=== PATIENT | male | born 1990 | race African-American/Black ===

== ENCOUNTER 2017-08-09 00:16 | Emergency (ER) | payer SELFPAY ==
[~2017-08-09] VITALS: Ht 188 cm; Wt 78.0 kg
[~2017-08-09 00:16] MED LIST: BACT800T5 PO; CEPH500C3 PO
[2017-08-09 00:17] VITALS: BP 140/86; PULSE 110; RESP 16; TEMP 99.1; O2SAT 94
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
[2017-08-09] MEDS ORDERED: IBUPROFEN 800 MG TAB PO ONE (01:45)
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
[2017-08-09] MEDS ORDERED: AUGM875T3 PO (03:30)
[2017-08-09] MEDS ORDERED: IBUP800T23 PO (03:30)
== END 2017-08-09 03:43 | disposition home or self-care (01) ==
LOC: NEPD 00:16
DX: S60.221A Contusion of right hand, initial encounter (principal); S61.451A Open bite of right hand, initial encounter; Y04.1XXA Assault by human bite, initial encounter
CPT/HCPCS: 73130; 99283

== ENCOUNTER 2018-07-05 21:22 | Inpatient (IN) ==
[2018-07-05] MEDS ORDERED: Naloxone Inj 0.4 MG/ML Vial IV.PUSH ONE (21:38)
[2018-07-05] MEDS ORDERED: Sod Chloride 0.9% Inj 1,000 ML IV.SIG ONE (21:38)
[2018-07-05] MEDS ORDERED: Naloxone Inj 0.4 MG/ML Vial ONE (21:40)
[2018-07-05 22:19] LABS: Baso # (Auto) 0.1 th/mm3 (0.0-0.2); Baso % (Auto) 0.7 % (0.0-2.0); Eos # (Auto) 0.2 th/mm3 (0.0-0.4); Eos % (Auto) 2.2 % (0.0-4.0); Hematocrit 40.2 % (39.0-51.0); Hemoglobin 13.5 gm/dL (13.0-17.0); Lymph # (Auto) 3.3 th/mm3 (1.0-4.8); Lymph % (Auto) 35.7 % (9.0-44.0); Mean Corpuscular HGB Conc 33.6 % (32.0-36.0); Mean Corpuscular Hemoglobin 28.5 pg (27.0-34.0); Mean Corpuscular Volume 84.7 fL (80.0-100.0); Mean Platelet Volume 7.6 fL (7.0-11.0); Mono # (Auto) 0.7 th/mm3 (0.0-0.9); Mono % (Auto) 7.2 % (0.0-8.0); Neut # (Auto) 4.9 th/mm3 (1.8-7.7); Neut % (Auto) 54.2 % (16.0-70.0); Platelet Count 280 th/mm3 (150-450); Red Blood Count 4.74 mil/mm3 (4.50-5.90); Red Cell Distribution Width 14.7 % (11.6-17.2); White Blood Count 9.1 th/mm3 (4.0-11.0)
--- NOTE | 2018-07-05 22:23 | XR ---
EXAM DATE: 07/05/2018 10:08 PM EDT AGE/SEX: 27 years / Male INDICATIONS: Shortness of breath. CLINICAL DATA: This is the patient's initial encounter. Patient reports that signs and symptoms have been present for 1 day and indicates a pain score of 0/10. MEDICAL/SURGICAL HISTORY: None. None. COMPARISON: No prior exams available for comparison. FINDINGS: A single AP view of the chest demonstrates the lungs to be symmetrically aerated without evidence of mass, infiltrate or effusion. The cardiomediastinal contours are unremarkable. Osseous structures a re intact. CONCLUSION: The lungs are clear. Electronically signed by: Nathaniel Fermin MD 07/05/2018 10:21 PM EDT
--- NOTE | 2018-07-05 22:24 | CT ---
EXAM DATE: 07/05/2018 10:08 PM EDT AGE/SEX: 27 years / Male INDICATIONS: Altered mental status, possible overdose CLINICAL DATA: This is the patient's initial encounter. Patient reports that signs and symptoms have been present for 1 day and indicates a pain score of 0/10. MEDICAL/SURGICAL HISTORY: Renal calculi. None. RADIATION DOSE: 56.35 CTDI (mGy) COMPARISON: [facility] [place], CT BRAIN W/O CONTRAST, 09/14/2012. . TECHNIQUE: CT of the head without contrast. Using automated exposure control and adjustment of the mA and/or kV according to patient size, radiation dose was kept as low as reasonably achievable to ob tain optimal diagnostic quality images. DICOM format image data is available electronically for revi ew and comparison. FINDINGS: Cerebrum: The ventricles are normal for age. No evidence of midline shift, mass lesion, hemorrhage or acute infarction. No extraaxial fluid collections are seen. Posterior Fossa: The cerebellum and brainstem are intact. The 4th ventricle is midline. The cerebe llopontine angle is unremarkable. Extracranial: The visualized portion of the orbits is intact. Skull: The calvaria is intact. No evidence of skull fracture. CONCLUSION: 1. Negative noncontrast CT brain. . Electronically signed by: Nathaniel Fermin MD 07/05/2018 10:22 PM EDT
[2018-07-05 22:45] LABS: Alanine Aminotransferase 76 U/L (12-78); Albumin 4.1 g/dL (3.4-5.0); Alkaline Phosphatase 84 U/L (45-117); Anion Gap 6 meq/L (5-15); Aspartate Aminotransferase 47 U/L (15-37); Blood Urea Nitrogen 17 mg/dL (7-18); Calcium 8.3 mg/dL (8.5-10.1); Carbon Dioxide 30.1 meq/L (21.0-32.0); Chloride 107 meq/L (98-107); Glomerular Filtration Rate 78 mL/min (>89); Glucose,Random 102 mg/dL (74-106); Sodium 143 meq/L (136-145); Total Protein 7.8 g/dL (6.4-8.2)
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
--- NOTE | 2018-07-06 00:12 | CT ---
EXAM DATE: 07/05/2018 11:59 PM EDT AGE/SEX: 27 years / Male INDICATIONS: Patient found unresponsive. CLINICAL DATA: This is the patient's initial encounter. Patient reports that signs and symptoms have been present for 1 day and indicates a pain score of 2/10. MEDICAL/SURGICAL HISTORY: Renal calculi. None. RADIATION DOSE: 18.73 CTDI (mGy) COMPARISON: No prior exams available for comparison. TECHNIQUE: Contiguous axial images were obtained using helical multirow detector technique. The vol umetric data was post-processed with multiplanar reconstruction in oblique axial, sagittal, and coron al planes. Using automated exposure control and adjustment of the mA and/or kV according to patient s ize, radiation dose was kept as low as reasonably achievable to obtain optimal diagnostic quality torri ges. DICOM format image data is available electronically for review and comparison. FINDINGS: Sagittal and coronal reconstruction show reversal of the normal lordotic curvature which may be posit ional. There is some early degenerative disc disease with small uncovertebral ridging is identified a t C4-5 and C5-6. C2-3: The bony spinal canal is normal in size. No evidence of disc bulge or herniation. The neural foramina are bilaterally patent. C3-4: The bony spinal canal is normal in size. No evidence of disc bulge or herniation. The neural foramina are bilaterally patent. C4-5: Minimal uncovertebral ridging predominantly directed anteriorly. Spinal canal and neural heena merlny are patent C5-6: Minimal uncovertebral ridging anteriorly and posteriorly. Spinal canal and neural foramina are patent C6-7: The bony spinal canal is normal in size. No evidence of disc bulge or herniation. The neural foramina are bilaterally patent. C7-T1: The bony spinal canal is normal in size. No evidence of disc bulge or herniation. The neura l foramina are bilaterally patent. CONCLUSION: 1. Reversal of the normal lordotic curvature which may be positional. Mild degenerative disc disease at C4-5 and C5-6 with small uncovertebral spurs. 2. However, spinal canal and neural foramina are patent throughout without cord or nerve root compro mise. No fracture or listhesis. Electronically signed by: Dany Mccoy MD 07/06/2018 12:11 AM EDT
[2018-07-06 02:08] LABS: Amphetamine Screen,Urine Neg (Neg); Barbiturate Screen,Urine Neg (Neg); Cannabinoid Screen,Urine Pos (Neg); Cocaine Screen,Urine Pos (Neg)
[2018-07-06 02:10] LABS: Bilirubin,Urine Negative (Negative); Calcium Oxalate Crystals,Urine Rare /hpf; Clarity,Urine Hazy (Clear); Color,Urine Amber (Yellw/Straw); Glucose,Urine (UA) Negative (Negative); Hyaline Casts,Urine 5 /lpf (0-3); Leukocyte Esterase,Urine Negative (Negative); Mucus,Urine Many /lpf (Occasional); Nitrite,Urine Negative (Negative); Specific Gravity,Urine 1.032 (1.002-1.035); Squamous Epithelial Cell,Urine <1 /hpf (0-5)
[2018-07-06 02:12] LABS: Opiate Screen,Urine Neg (Neg)
[2018-07-06] MEDS ORDERED: Bisacodyl 10 MG Supp RECTAL PRN (03:12)
[2018-07-06] MEDS ORDERED: Acetaminophen 325 MG Tablet PO PRN (03:12)
--- NOTE | 2018-07-06 04:17 | P.HP ---
History of Present Illness Service: [facility] Primary Care Physician: No Primary Care Physician History of Present Illness: 27-year-old male with past medical history significant for IV drug abuse presents to the emergency department altered and with concern for substance overdose. The patient was given in the emergency department with significant improvement in his mental status. He reports remembering department department with EMS was called. He admits doing IV cocaine/heroine approximately 30-40 minutes prior to the incident. Patient denies any chest pain or shortness of breath. No abdominal pain. No nausea/vomiting/diarrhea. No fever/chills. Reports he has been trying to get a bed at [facility] so that he can go into detox. Inpatient Certification: I certify that the inpatient services were ordered in accordance with Medicare regulations governing the order. This includes certification that hospital inpatient services are reasonable and necessary and in the case of services not specified as inpatient-only under 42 CFR 419.22(n), that they are appropriately provided as inpatient services in accordance to with the 2-midnight benchmark under 43 CFR 412.3(e) Estimated Total Length of Stay (Days): 2 Plans for Post Hospital Care: Not yet determined Review of Systems All other systems reviewed negative except as stated in HPI PMFSH - History History Provided By: Insurance Agents Supervisor / EMT - Medical / Surgical Hx Neg / Unobtainable Surgical History: No Previous Surgery - Medical History Medical History: Medical History (Last Reviewed 07/03/18 @ 01:32 by THANH Schaefer) Polysubstance abuse (Acute) Kidney stones (Acute) PTSD (post-traumatic stress disorder) (Acute) - Family History Family History: Family History (Last Updated 07/06/18 @ 04:10 by Karley Sales MD) Other Family history normal - Tobacco History Second Hand Smoke Exposure: No Tobacco Use In Past 30 Days: Yes Smoking Status: Current every day smoker Tobacco Type: Cigarettes - Alcohol History How Often Do You Have a Drink Containing Alcohol: Unable to Obtain - Substance Use History Substance History: Active Abuse - Substance Use Type Heroin Status: Active Route Used: Intravenously Reason for Use: Feels Good - Travel History Recent Travel in the [place] Within the Last 8 Weeks: No Recent Travel Out of the Country Within the Last 8 Weeks: No - Immunization History Tetanus Immunization: <5 Years Hx Influenza Vaccine This Season: No Medications and Allergies Active Medications: Active Medications Al Hydroxide/Mg Hydroxide (Milk Of Arvirago Liq) 30 ml PO Q12H PRN PRN Reason: Mild Constipation Bisacodyl (Dulcolax Supp) 10 mg RECTAL DAILY PRN PRN Reason: SEVERE CONSITIPATION Sodium Chloride (Ns Inj) 1,000 mls @ 100 mls/hr IV.CONT .Q10H JESSICA Lactulose (Lactulose Liq) 30 ml PO DAILY PRN PRN Reason: SEVERE CONSITIPATION Ondansetron HCl (Zofran Inj) 4 mg IV.PUSH Q6H PRN PRN Reason: NAUSEA OR VOMITING Senna/Docusate Sodium (Sara-Colace) 1 tab PO BID JESSICA Sennosides (Senokot) 17.2 mg PO Q12H PRN PRN Reason: Moderate Constipation Allergies Allergy/AdvReac Type Severity Reaction Status Date / Time acetaminophen Allergy Severe FACE SWELLS Verified 07/05/18 21:31 banana Allergy Nausea Verified 07/05/18 21:31 nut - unspecified Allergy Itching, Verified 07/05/18 21:31 Generalized shellfish derived Allergy Rash Verified 07/05/18 21:31 Home Medications Medication Instructions Recorded Confirmed Type clonidine HCl 0.1 mg PO DAILY 07/03/18 07/03/18 History hydroxyzine pamoate [Vistaril] 50 mg PO PRN PRN 07/03/18 07/03/18 History mirtazapine [Remeron] 15 mg PO HS 07/03/18 07/03/18 History Exam Vital signs: Vital Signs 07/05/18 21:31 07/05/18 22:11 07/06/18 01:29 Temperature 98.2 F Pulse Rate 115 H 62 Respiratory Rate 19 16 Blood Pressure 168/79 H 116/78 Pulse Oximetry 95 96 99 Intake & Output 07/05/18 07/05/18 07/06/18 06:59 18:59 06:59 Intake Total 1000 / 1000 Balance 1000 / 1000 Weight 72.575 kg Intake: IV 1000 / 1000 NS Inj 1,000 ML @ Wide Open IV. 1000 / 1000 SIG BOLUS ONE Rx#:[id number] Narrative: Gen.: No acute distress Head: Normocephalic. Atraumatic. EENT: Pupils equal round and reactive to light. Nose without drainage. Airway intact. Throat without injection. Cardiovascular: Regular rate and rhythm. No murmurs, rubs or gallops. Respiratory: Lungs clear to auscultation bilaterally. No wheezes or rhonchi. Abdomen: Soft, nontender, nondistended. No peritoneal signs. Musculoskeletal: No gross deformities. No edema. Skin: No obvious rashes or erythema. Neuro: Sensory and motor grossly intact. Cranial nerves II through XII grossly intact. Results - Labs CBC & Chem 7: 07/05/18 21:45 07/05/18 21:45 Labs: Laboratory Results - last 24 hr 07/05/18 07/05/18 07/05/18 21:45 21:45 21:45 WBC 9.1 RBC 4.74 Hgb 13.5 Hct 40.2 MCV 84.7 MCH 28.5 MCHC 33.6 RDW 14.7 Plt Count 280 MPV 7.6 Neut % (Auto) 54.2 Lymph % (Auto) 35.7 [place] % (Auto) 7.2 Eos % (Auto) 2.2 Baso % (Auto) 0.7 Neut # (Auto) 4.9 Lymph # (Auto) 3.3 [place] # (Auto) 0.7 Eos # (Auto) 0.2 Baso # (Auto) 0.1 WBC Differential . Differential Comment Auto diff final Sodium 143 Potassium 4.0 Chloride 107 Carbon Dioxide 30.1 Anion Gap 6 BUN 17 Creatinine 1.32 H Estimated GFR 78 L Random Glucose 102 Lactic Acid 0.9 Calcium 8.3 L Total Bilirubin 0.2 AST 47 H ALT 76 Alkaline Phosphatase 84 Troponin I 0.10 H Total Protein 7.8 Albumin 4.1 Urine Color Urine Clarity Urine pH Ur Specific [place] Urine Protein Urine Glucose (UA) Urine Ketones Urine Occult Blood Urine Nitrate Urine Bilirubin Urine Urobilinogen Ur Leukocyte Esterase Urine RBC Urine WBC Ur Squamous Epith Cells Calcium Oxalate Crystal Hyaline Casts Urine Mucus Ur Microscopic Review Salicylates Urine Opiates Screen Acetaminophen Less than 2.0 L Ur Barbiturates Screen Ur Amphetamines Screen U Benzodiazepines Scrn Urine Cocaine Screen U Cannabinoids Screen Serum Alcohol Less than 3 07/05/18 07/06/18 07/06/18 21:45 01:45 01:45 WBC RBC Hgb Hct MCV MCH MCHC RDW Plt Count MPV Neut % (Auto) Lymph % (Auto) [place] % (Auto) Eos % (Auto) Baso % (Auto) Neut # (Auto) Lymph # (Auto) [place] # (Auto) Eos # (Auto) Baso # (Auto) WBC Differential Differential Comment Sodium Potassium Chloride Carbon Dioxide Anion Gap BUN Creatinine Estimated GFR Random Glucose Lactic Acid Calcium Total Bilirubin AST ALT Alkaline Phosphatase Troponin I Total Protein Albumin Urine Color [place] Urine Clarity Hazy H Urine pH 5.0 Ur Specific [place] 1.032 Urine Protein 30 H Urine Glucose (UA) Negative Urine Ketones Trace Urine Occult Blood Negative Urine Nitrate Negative Urine Bilirubin Negative Urine Urobilinogen 2.0 H Ur Leukocyte Esterase Negative Urine RBC 8 H Urine WBC 2 Ur Squamous Epith Cells <1 Calcium Oxalate Crystal Rare H Hyaline Casts 5 Urine Mucus Many H Ur Microscopic Review Not Reportable Salicylates Less than 1.7 L Urine Opiates Screen Neg Acetaminophen Ur Barbiturates Screen Neg Ur Amphetamines Screen Neg U Benzodiazepines Scrn Neg Urine Cocaine Screen Pos H U Cannabinoids Screen Pos H Serum Alcohol - Imaging Impressions Chest X-Ray 07/05/18 21:38 CONCLUSION: The lungs are clear. Head CT 07/05/18 21:38 CONCLUSION: 1. Negative noncontrast CT brain. . Cervical Spine CT 07/05/18 23:31 CONCLUSION: 1. Reversal of the normal lordotic curvature which may be positional. Mild degenerative disc disease at C4-5 and C5-6 with small uncovertebral spurs. 2. However, spinal canal and neural foramina are patent throughout without cord or nerve root compromise. No fracture or listhesis. Caprini VTE Risk Assessment Caprini VTE Risk Assessment: No/Low Risk (score <= 1) Caprini Risk Assessment Model: Point Value = 1 Point Value = 2 Point Value = 3 Point Value = 5 Age 41-60 Minor surgery BMI > 25 kg/m2 Swollen legs Varicose veins or History of unexplained or recurrent spontaneous Oral contraceptives or hormone replacement Sepsis (< 1 month) Serious lung disease, including pneumonia (< 1 month) Abnormal pulmonary function Acute myocardial infarction Congestive heart failure (< 1 month) History of inflammatory bowel disease Medical patient at bed rest Age 61-74 Arthroscopic surgery Major open surgery (> 45 min) Laparoscopic surgery (> 45 min) Malignancy Confined to bed (> 72 hours) Immobilizing plaster cast Central venous access Age >= 75 History of VTE Family history of VTE Factor V Leiden Prothrombin [id number] Lupus anticoagulant Anticardiolipin antibodies Elevated serum homocysteine Heparin-induced thrombocytopenia Other congenital or acquired thrombophilia Stroke (< 1 month) Elective arthroplasty Hip, pelvis, or leg fracture Acute spinal cord injury (< 1 month) Prophylaxis Regimen: Total Risk Factor Score Risk Level Prophylaxis Regimen 0-1 Low Early ambulation 2 Moderate Order ONE of the following: *Sequential Compression Device (SCD) *Heparin 5000 units SQ BID 3-4 Higher Order ONE of the following medications: *Heparin 5000 units SQ TID *Enoxaparin/Lovenox 40 mg SQ daily (WT < 150 kg, CrCl > 30 mL/min) *Enoxaparin/Lovenox 30 mg SQ daily (WT < 150 kg, CrCl > 10-29 mL/min) *Enoxaparin/Lovenox 30 mg SQ BID (WT < 150 kg, CrCl > 30 mL/min) AND/OR *Sequential Compression Device (SCD) 5 or more Highest Order ONE of the following medications: *Heparin 5000 units SQ TID (Preferred with Epidurals) *Enoxaparin/Lovenox 40 mg SQ daily (WT < 150 kg, CrCl > 30 mL/min) *Enoxaparin/Lovenox 30 mg SQ daily (WT < 150 kg, CrCl > 10-29 mL/min) *Enoxaparin/Lovenox 30 mg SQ BID (WT < 150 kg, CrCl > 30 mL/min) AND *Sequential Compression Device (SCD) Assessment and Plan - Plan Assessment/plan: 1. Drug overdose Patient admits to doing IV cocaine and heroin Status post Narcan Monitor Repeat Narcan if needed 2. Elevated troponin Initial troponin 0.10 EKG significant for sinus bradycardia without ST segment elevation or depression , personally reviewed ACS rule out pending; serial troponins/EKGs 3. DAREN Cr 1.32 IVF hydration Monitor renal function 4. Polysubstance abuse Patient reports he attempted to get a bed at [facility] yesterday and they are holding one for him today Case management consulted to assist FEN Regular diet Electrolytes: Monitor and replete as needed NS at 100 cc/hour
[2018-07-06] MEDS: Sod Chloride 0.9% Inj 1,000 ML IV.CONT SCH ×3 (04:22→23:38)
[2018-07-06 04:27] LABS: Troponin I 0.38 ng/mL (0.02-0.05)
[2018-07-06] MEDS ORDERED: Sod Chloride 0.9% Inj 1,000 ML IV.SIG SCH (04:30)
[2018-07-06] MEDS: Senna/Docusate Sodium 8.6/50 MG Tablet PO SCH ×2 (09:08→21:05)
[2018-07-06] MEDS: Ibuprofen 400 MG Tablet PO PRN (10:20)
--- NOTE | 2018-07-06 12:45 | ECG ---
Date Performed: 07/05/2018 Time Performed: 22:40:50 PTAGE: 27 years EKG: SINUS BRADYCARDIA MARKED LEFT AXIS DEVIATION POSSIBLE RIGHT VENTRICULAR CONDUCTION DELAY NO NSPECIFIC T-WAVE ABNORMALITY ABNORMAL ECG PREVIOUS TRACING : 12/19/2014 19.28 Since the previous tracing, no significant change noted DOCTOR: Jorge Yuen Interpretating Date/Time 07/06/2018 12:44:07
--- NOTE | 2018-07-06 12:46 | ECG ---
Date Performed: 07/06/2018 Time Performed: 04:07:28 PTAGE: 27 years EKG: SINUS BRADYCARDIA WITH FIRST DEGREE AV BLOCK BORDERLINE LEFT AXIS DEVIATION POSSIBLE RIGHT VENTRICULAR CONDUCTION DELAY ABNORMAL ECG NO PREVIOUS TRACING Since the previous tracing, no significant change noted DOCTOR: Jorge Yuen Interpretating Date/Time 07/06/2018 12:44:22
--- NOTE | 2018-07-06 12:49 | MB ---
cc: Jorge Yuen MD DATE: 07/06/2018 REASON FOR CONSULTATION: Elevated troponin. HISTORY OF PRESENT ILLNESS: The patient is a 27-year-old gentleman who was recently in rehab for drug use and had been clean for a brief period of time, but relapsed fairly quickly afterwards including both cocaine and heroin. He was brought to the hospital for concern of drug overdose and part of his workup showed an elevated troponin. He did receive Narcan. Currently, the patient denies any current or recent chest pain, shortness of breath, lightheadedness, or dizziness. He just notes nausea and vomiting that he attributes to heroin withdrawal. PAST MEDICAL HISTORY: IV drug abuse. CURRENT MEDICATIONS: Lactulose p.r.n. ALLERGIES: ACETAMINOPHEN, BANANA. PHYSICAL EXAMINATION: VITAL SIGNS: Afebrile, pulse 51, respiratory rate 16, BP 116/67, saturating 93 on room air. GENERAL: Pleasant, though somnolent gentleman in no distress. NECK: No JVD. LUNGS: Clear to auscultation bilaterally. CARDIOVASCULAR: Regular rate and rhythm. No murmurs appreciated. ABDOMEN: Benign. EXTREMITIES: No edema. LABORATORY DATA: Troponin 0.38. Sodium 143, potassium 4.0, chloride 107, bicarbonate 30.1, BUN 17, creatinine 1.32, glucose 102. Troponin 0.38. EKG shows sinus rhythm with no acute ST or T-wave changes. Chest x-ray is normal. IMPRESSION: Elevated troponin. The patient's elevated troponins are unlikely to be acute coronary syndrome given no chest pain and normal EKG and a relatively young age. Given his SHELLFISH ALLERGY, I will start with a nuclear stress test. Hopefully it will be normal. If positive, I will likely have him undergo a CTA before cardiac catheterization given the low likelihood for coronary artery disease. I would ask that these tests be done tomorrow given he is pretty uncomfortable from his heroin withdrawal currently. I will monitor the results of these tests, but likely will not follow the patient on a daily basis. Thank you again for the opportunity to participate in this patient's care. MD STANISLAV Larson/billie , 11:25 AM , 11:30 AM
--- NOTE | 2018-07-06 14:49 | P.PN ---
Subjective Interval history: Follow-up for overdose and elevated troponin; patient awakes to voice, somewhat anxious. Denies any chest pain, no shortness of breath, complain of nausea vomiting. No abdominal pain. Indicates that he had not had any drugs for about a month until yesterday when he relapsed. Patient has been dropping heart rate down to 30s, has been noted with pulses from 2.2-2.6 seconds. Patient asymptomatic, no dizziness. Has been evaluated by cardiology, stress test recommended possibly Sunday. Physical Exam Vital signs: Vital Signs 07/05/18 21:31 07/05/18 22:11 07/06/18 01:29 Temperature 98.2 F Pulse Rate 115 H 62 Respiratory Rate 19 16 Blood Pressure 168/79 H 116/78 Pulse Oximetry 95 96 99 07/06/18 04:00 07/06/18 04:22 07/06/18 06:00 Temperature 97.6 F Pulse Rate 57 L 52 L 51 L Respiratory Rate 19 16 Blood Pressure 121/80 116/67 Pulse Oximetry 100 07/06/18 08:00 07/06/18 12:00 Temperature 98 F 97.8 F Pulse Rate 49 L 60 Respiratory Rate 20 20 Blood Pressure 111/62 118/81 Pulse Oximetry 99 98 Intake & Output 07/05/18 07/06/18 07/06/18 18:59 06:59 18:59 Intake Total 1999 1000 / 1000 Balance 1999 1000 / 1000 Weight 73.482 kg Intake: IV 1999 / 1000 NS Inj 1,000 ML @ 125 mls/hr IV 1000 / 1000 .CONT .Q8H JESSICA Rx#:[id number] NS Inj 1,000 ML @ Wide Open IV. 1999 SIG BOLUS JESSICA Rx#:[id number] Other: Weight On Admission 73.482 kg Narrative: GENERAL: Well-nourished, well-developed patient in no apparent distress. SKIN: Warm and dry. HEAD: Atraumatic. Normocephalic. EYES: Pupils equal and round. No scleral icterus. No injection or drainage. ENT: No nasal bleeding or discharge. Mucous membranes pink and moist. NECK: Trachea midline. No JVD. CARDIOVASCULAR: S1-S2, bradycardia. Unable to detect any murmurs rubs or gallops. RESPIRATORY: No accessory muscle use. Clear to auscultation. Breath sounds equal bilaterally. GASTROINTESTINAL: Abdomen soft, non-tender, nondistended. Hepatic and splenic margins not palpable. MUSCULOSKELETAL: Extremities without clubbing, cyanosis, or edema. No obvious deformities. NEUROLOGICAL: Awake, alert oriented 3. No focal deficits. PSYCHIATRIC: Anxious. Results - Labs CBC & Chem 7: 07/05/18 21:45 07/05/18 21:45 Laboratory Results - last 24 hr 07/05/18 07/05/18 07/05/18 21:45 21:45 21:45 WBC 9.1 RBC 4.74 Hgb 13.5 Hct 40.2 MCV 84.7 MCH 28.5 MCHC 33.6 RDW 14.7 Plt Count 280 MPV 7.6 Neut % (Auto) 54.2 Lymph % (Auto) 35.7 [place] % (Auto) 7.2 Eos % (Auto) 2.2 Baso % (Auto) 0.7 Neut # (Auto) 4.9 Lymph # (Auto) 3.3 [place] # (Auto) 0.7 Eos # (Auto) 0.2 Baso # (Auto) 0.1 WBC Differential . Differential Comment Auto diff final Sodium 143 Potassium 4.0 Chloride 107 Carbon Dioxide 30.1 Anion Gap 6 BUN 17 Creatinine 1.32 H Estimated GFR 78 L Random Glucose 102 Lactic Acid 0.9 Calcium 8.3 L Total Bilirubin 0.2 AST 47 H ALT 76 Alkaline Phosphatase 84 Total Creatine Kinase Troponin I 0.10 H Total Protein 7.8 Albumin 4.1 Urine Color Urine Clarity Urine pH Ur Specific [place] Urine Protein Urine Glucose (UA) Urine Ketones Urine Occult Blood Urine Nitrate Urine Bilirubin Urine Urobilinogen Ur Leukocyte Esterase Urine RBC Urine WBC Ur Squamous Epith Cells Calcium Oxalate Crystal Hyaline Casts Urine Mucus Ur Microscopic Review Salicylates Urine Opiates Screen Acetaminophen Less than 2.0 L Ur Barbiturates Screen Ur Amphetamines Screen U Benzodiazepines Scrn Urine Cocaine Screen U Cannabinoids Screen Serum Alcohol Less than 3 07/05/18 07/06/18 07/06/18 21:45 01:45 01:45 WBC RBC Hgb Hct MCV MCH MCHC RDW Plt Count MPV Neut % (Auto) Lymph % (Auto) [place] % (Auto) Eos % (Auto) Baso % (Auto) Neut # (Auto) Lymph # (Auto) [place] # (Auto) Eos # (Auto) Baso # (Auto) WBC Differential Differential Comment Sodium Potassium Chloride Carbon Dioxide Anion Gap BUN Creatinine Estimated GFR Random Glucose Lactic Acid Calcium Total Bilirubin AST ALT Alkaline Phosphatase Total Creatine Kinase Troponin I Total Protein Albumin Urine Color Maribel Urine Clarity Hazy H Urine pH 5.0 Ur Specific [place] 1.032 Urine Protein 30 H Urine Glucose (UA) Negative Urine Ketones Trace Urine Occult Blood Negative Urine Nitrate Negative Urine Bilirubin Negative Urine Urobilinogen 2.0 H Ur Leukocyte Esterase Negative Urine RBC 8 H Urine WBC 2 Ur Squamous Epith Cells <1 Calcium Oxalate Crystal Rare H Hyaline Casts 5 Urine Mucus Many H Ur Microscopic Review Not Reportable Salicylates Less than 1.7 L Urine Opiates Screen Neg Acetaminophen Ur Barbiturates Screen Neg Ur Amphetamines Screen Neg U Benzodiazepines Scrn Neg Urine Cocaine Screen Pos H U Cannabinoids Screen Pos H Serum Alcohol 07/06/18 04:00 WBC RBC Hgb Hct MCV MCH MCHC RDW Plt Count MPV Neut % (Auto) Lymph % (Auto) [place] % (Auto) Eos % (Auto) Baso % (Auto) Neut # (Auto) Lymph # (Auto) [place] # (Auto) Eos # (Auto) Baso # (Auto) WBC Differential Differential Comment Sodium Potassium Chloride Carbon Dioxide Anion Gap BUN Creatinine Estimated GFR Random Glucose Lactic Acid Calcium Total Bilirubin AST ALT Alkaline Phosphatase Total Creatine Kinase 176 Troponin I 0.38 H Total Protein Albumin Urine Color Urine Clarity Urine pH Ur Specific [place] Urine Protein Urine Glucose (UA) Urine Ketones Urine Occult Blood Urine Nitrate Urine Bilirubin Urine Urobilinogen Ur Leukocyte Esterase Urine RBC Urine WBC Ur Squamous Epith Cells Calcium Oxalate Crystal Hyaline Casts Urine Mucus Ur Microscopic Review Salicylates Urine Opiates Screen Acetaminophen Ur Barbiturates Screen Ur Amphetamines Screen U Benzodiazepines Scrn Urine Cocaine Screen U Cannabinoids Screen Serum Alcohol - Imaging Impressions Chest X-Ray 07/05/18 21:38 CONCLUSION: The lungs are clear. Head CT 07/05/18 21:38 CONCLUSION: 1. Negative noncontrast CT brain. . Cervical Spine CT 07/05/18 23:31 CONCLUSION: 1. Reversal of the normal lordotic curvature which may be positional. Mild degenerative disc disease at C4-5 and C5-6 with small uncovertebral spurs. 2. However, spinal canal and neural foramina are patent throughout without cord or nerve root compromise. No fracture or listhesis. Assessment and Plan - Assessment (1) Elevated troponin Code(s): R74.8 - Abnormal levels of other serum enzymes Status: Acute (2) Bradycardia Code(s): R00.1 - Bradycardia, unspecified Status: Acute (3) DAREN (acute kidney injury) Code(s): N17.9 - Acute kidney failure, unspecified Status: Acute (4) Polysubstance abuse Code(s): F19.10 - Other psychoactive substance abuse, uncomplicated Status: Acute - Plan Assessment/plan: 27-year-old male with past medical history significant for IV drug abuse presents to the emergency department altered and with concern for substance overdose. Admits to taking IV cocaine/heroine approximately 30-40 minutes prior to the incident. Patient denies any chest pain or shortness of breath. No abdominal pain. No nausea/vomiting/diarrhea. No fever/chills. Reports he has been trying to get a bed at [facility] so that he can go into detox. Drug overdose Patient admits to doing IV cocaine and heroin Status post Narcan -Monitor for withdrawals Monitor vital signs closely Narcan as needed Continue with IV fluids Elevated troponin, doubtful that this is due to the acute coronary syndrome, patient with recent IV cocaine and heroin. Patient also noted with acute kidney injury. EKG negative, no ST segment elevation, no depression. Bradycardia, noted with pauses 2.2 to 2.6 seconds. Possibly secondary to drug use. -Initial troponin 0.10, second troponin 0.38, third troponin pending Cardiology consulted, discussed with Dr. Garcia. Possible stress test on Sunday. -We will increase IV fluids, normal saline 125. Discussed with cardiology, likely the result of drugs. For now we will continue to monitor. Patient is asymptomatic. -repeat BMP -Continuous cardiac telemetry DAREN Cr 1.32 -IVF hydration -Monitor renal function Polysubstance abuse, history of frequent admissions to inpatient psych -patient reports he attempted to get a bed at [facility] yesterday and they are holding one for him -Case management following. -Patient counseled about substance abuse Repeat labs in the morning Plan of care discussed with patient, RN, case management
[2018-07-06 17:06] LABS: Anion Gap 5 meq/L (5-15); Blood Urea Nitrogen 14 mg/dL (7-18); Calcium 8.1 mg/dL (8.5-10.1); Carbon Dioxide 27.8 meq/L (21.0-32.0); Chloride 110 meq/L (98-107); Glomerular Filtration Rate Greater Than 89 mL/min (>89); Glucose,Random 92 mg/dL (74-106); Sodium 143 meq/L (136-145)
[2018-07-06 17:09] LABS: Creatine Kinase 156 U/L (39-308); Troponin I 0.06 ng/mL (0.02-0.05)
[2018-07-07] MEDS: Sod Chloride 0.9% Inj 1,000 ML IV.CONT SCH ×3 (06:14→19:13)
[2018-07-07] MEDS: Senna/Docusate Sodium 8.6/50 MG Tablet PO SCH ×2 (09:01→21:16)
[2018-07-07 09:26] LABS: Baso % (Auto) 0.6 % (0.0-2.0); Eos # (Auto) 0.1 th/mm3 (0.0-0.4); Eos % (Auto) 1.7 % (0.0-4.0); Hematocrit 40.2 % (39.0-51.0); Hemoglobin 13.2 gm/dL (13.0-17.0); Lymph # (Auto) 1.7 th/mm3 (1.0-4.8); Lymph % (Auto) 28.5 % (9.0-44.0); Mean Corpuscular HGB Conc 32.7 % (32.0-36.0); Mean Corpuscular Hemoglobin 28.2 pg (27.0-34.0); Mean Corpuscular Volume 86.2 fL (80.0-100.0); Mean Platelet Volume 8.2 fL (7.0-11.0); Mono # (Auto) 0.5 th/mm3 (0.0-0.9); Mono % (Auto) 8.3 % (0.0-8.0); Neut # (Auto) 3.6 th/mm3 (1.8-7.7); Neut % (Auto) 60.9 % (16.0-70.0); Platelet Count 254 th/mm3 (150-450); Red Blood Count 4.67 mil/mm3 (4.50-5.90); Red Cell Distribution Width 14.4 % (11.6-17.2); White Blood Count 5.9 th/mm3 (4.0-11.0)
[2018-07-07 09:57] LABS: Anion Gap 6 meq/L (5-15); Blood Urea Nitrogen 9 mg/dL (7-18); Calcium 8.7 mg/dL (8.5-10.1); Carbon Dioxide 26.8 meq/L (21.0-32.0); Chloride 108 meq/L (98-107); Glomerular Filtration Rate Greater Than 89 mL/min (>89); Glucose,Random 88 mg/dL (74-106); Potassium 3.8 meq/L (3.5-5.1); Sodium 141 meq/L (136-145)
--- NOTE | 2018-07-07 10:05 | P.PN ---
Subjective Interval history: follow up for OD, elevated trop, bradycardia: awakes to voice, feels anxious, nausea but no vomiting. Occ SOB, no dizziness. Doesn't want to eat. Tele reviewed, overnight with bradycardia, rhythm has changed. ? Idioventricular rhythm. Episodes occurring while he is sleeping. No fever, no chills. Physical Exam Vital signs: Vital Signs 07/06/18 12:00 07/06/18 16:00 07/06/18 17:51 Temperature 97.8 F 98.1 F Pulse Rate 60 44 L 48 L Respiratory Rate 20 20 Blood Pressure 118/81 128/77 Pulse Oximetry 98 07/06/18 17:52 07/06/18 19:48 07/06/18 20:00 Temperature 98.2 F Pulse Rate 36 L 64 78 Respiratory Rate 16 Blood Pressure 141/72 H Pulse Oximetry 97 07/07/18 00:00 07/07/18 04:00 Temperature 98.1 F 98.3 F Pulse Rate 47 L 52 L Respiratory Rate 16 16 Blood Pressure 153/79 H 148/75 H Pulse Oximetry 97 97 Intake & Output 07/06/18 07/07/18 07/07/18 18:59 06:59 18:59 Intake Total 1000 / 1000 1946 / 1946 Output Total 900 / 900 Balance 1000 / 1000 1046 / 1046 Weight 73.3 kg Intake: IV 1000 / 1000 1626 / 1626 NS Inj 1,000 ML @ 125 mls/hr IV 1000 / 1000 1626 / 1626 .CONT .Q8H [facility] Rx#:[id number] Oral 320 / 320 Output: Urine 900 / 900 Other: Date of Last Bowel Movement 07/06/18 Narrative: GENERAL: Well-nourished, well-developed patient in no apparent distress. SKIN: Warm and dry. HEAD: Atraumatic. Normocephalic. EYES: Pupils equal and round. No scleral icterus. No injection or drainage. ENT: No nasal bleeding or discharge. Mucous membranes pink and moist. NECK: Trachea midline. No JVD. CARDIOVASCULAR: S1-S2, bradycardia. Unable to detect any murmurs rubs or gallops. RESPIRATORY: No accessory muscle use. Clear to auscultation. Breath sounds equal bilaterally. GASTROINTESTINAL: Abdomen soft, non-tender, nondistended. Hepatic and splenic margins not palpable. MUSCULOSKELETAL: Extremities without clubbing, cyanosis, or edema. No obvious deformities. NEUROLOGICAL: Awakes to voice, alert oriented 3. No focal deficits. PSYCHIATRIC: Anxious. Results - Labs CBC & Chem 7: 07/07/18 07:43 07/06/18 15:47 Laboratory Results - last 24 hr 07/06/18 07/07/18 15:47 07:43 WBC 5.9 RBC 4.67 Hgb 13.2 Hct 40.2 MCV 86.2 MCH 28.2 MCHC 32.7 RDW 14.4 Plt Count 254 MPV 8.2 Neut % (Auto) 60.9 Lymph % (Auto) 28.5 [place] % (Auto) 8.3 H Eos % (Auto) 1.7 Baso % (Auto) 0.6 Neut # (Auto) 3.6 Lymph # (Auto) 1.7 [place] # (Auto) 0.5 Eos # (Auto) 0.1 Baso # (Auto) 0.0 WBC Differential . Differential Comment Auto diff final Sodium 143 Potassium 4.0 Chloride 110 H Carbon Dioxide 27.8 Anion Gap 5 BUN 14 Creatinine 0.96 Estimated GFR Greater than 89 Random Glucose 92 Calcium 8.1 L Total Creatine Kinase 156 Troponin I 0.06 H Assessment and Plan - Assessment (1) Elevated troponin Code(s): R74.8 - Abnormal levels of other serum enzymes Status: Acute (2) Bradycardia Code(s): R00.1 - Bradycardia, unspecified Status: Acute (3) DARNE (acute kidney injury) Code(s): N17.9 - Acute kidney failure, unspecified Status: Acute (4) Polysubstance abuse Code(s): F19.10 - Other psychoactive substance abuse, uncomplicated Status: Acute - Plan Assessment/plan: 27-year-old male with past medical history significant for IV drug abuse presents to the emergency department altered and with concern for substance overdose. Admits to taking IV cocaine/heroine approximately 30-40 minutes prior to the incident. Patient denies any chest pain or shortness of breath. No abdominal pain. No nausea/vomiting/diarrhea. No fever/chills. Reports he has been trying to get a bed at [facility] so that he can go into detox. Drug overdose Patient admits to doing IV cocaine and heroin Status post Narcan -Monitor for withdrawals Monitor vital signs closely Narcan as needed Continue with IV fluids, now at 125/hr Elevated troponin, doubtful that this is due to the acute coronary syndrome, patient with recent IV cocaine and heroin. Patient also noted with acute kidney injury. EKG negative, no ST segment elevation, no depression. Bradycardia, noted with pauses 2.2 to 2.6 seconds. Possibly secondary to drug use. -Initial troponin 0.10, second troponin 0.38, 3rd trop 0.06 Card following, poss STT on Sunday. -remains with bradycardia, HR down to 30s, rhythm changed overnight, ? idioventricular . D/W Dr. Yuen, likely idioventricular, poss vasovagals. For now continue to monitor. Pt has adequate blood pressure 140s DAREN Cr 1.32 -IVF hydration -Monitor renal function -renal function improving Polysubstance abuse, history of frequent admissions to inpatient psych -patient reports he attempted to get a bed at [facility] yesterday and they are holding one for him -Case management following. -Patient counseled about substance abuse BMP pending NPO after MN Plan of care discussed with patient, RN, cardiology
--- NOTE | 2018-07-07 10:17 | P.PN ---
Subjective Interval history: Pt in active w/d, feeling jittery/nervous, no cardiac sx, idioventricular rhythm at times on tele while asleep, normal rhythm while active, no clear sx. Physical Exam Vital signs: Vital Signs 07/06/18 12:00 07/06/18 16:00 07/06/18 17:51 Temperature 97.8 F 98.1 F Pulse Rate 60 44 L 48 L Respiratory Rate 20 20 Blood Pressure 118/81 128/77 Pulse Oximetry 98 07/06/18 17:52 07/06/18 19:48 07/06/18 20:00 Temperature 98.2 F Pulse Rate 36 L 64 78 Respiratory Rate 16 Blood Pressure 141/72 H Pulse Oximetry 97 07/07/18 00:00 07/07/18 04:00 Temperature 98.1 F 98.3 F Pulse Rate 47 L 52 L Respiratory Rate 16 16 Blood Pressure 153/79 H 148/75 H Pulse Oximetry 97 97 Intake & Output 07/06/18 07/07/18 07/07/18 18:59 06:59 18:59 Intake Total 1000 / 1000 1946 / 1946 Output Total 900 / 900 Balance 1000 / 1000 1046 / 1046 Weight 73.3 kg Intake: IV 1000 / 1000 1626 / 1626 NS Inj 1,000 ML @ 125 mls/hr IV 1000 / 1000 1626 / 1626 .CONT .Q8H [facility] Rx#:[id number] Oral 320 / 320 Output: Urine 900 / 900 Other: Date of Last Bowel Movement 07/06/18 - Constitutional no acute distress - Routine HEENT Exam Head: Present: normocephalic Eye: Present: EOMI - Routine Neck Exam Present: supple - Routine Respiratory Exam Present: CTA bilaterally - Routine Cardiovascular Exam Present: RRR. Absent: murmur - Routine Abdominal Exam Present: soft - Routine Extremities Exam Absent: edema - Routine Psychiatric Exam Comments: anxious Results - Labs CBC & Chem 7: 07/07/18 07:43 07/07/18 07:43 Laboratory Results - last 24 hr 07/06/18 07/07/18 07/07/18 15:47 07:43 07:43 WBC 5.9 RBC 4.67 Hgb 13.2 Hct 40.2 MCV 86.2 MCH 28.2 MCHC 32.7 RDW 14.4 Plt Count 254 MPV 8.2 Neut % (Auto) 60.9 Lymph % (Auto) 28.5 [place] % (Auto) 8.3 H Eos % (Auto) 1.7 Baso % (Auto) 0.6 Neut # (Auto) 3.6 Lymph # (Auto) 1.7 [place] # (Auto) 0.5 Eos # (Auto) 0.1 Baso # (Auto) 0.0 WBC Differential . Differential Comment Auto diff final Sodium 143 141 Potassium 4.0 3.8 Chloride 110 H 108 H Carbon Dioxide 27.8 26.8 Anion Gap 5 6 BUN 14 9 Creatinine 0.96 0.91 Estimated GFR Greater than 89 Greater than 89 Random Glucose 92 88 Calcium 8.1 L 8.7 Total Creatine Kinase 156 Troponin I 0.06 H Assessment and Plan - Assessment (1) Elevated troponin Code(s): R74.8 - Abnormal levels of other serum enzymes Status: Acute Plan: likely due to drug overdose; nuc stress before he leaves, currently too anxious , tentatively scheduled for Sunday but can be pushed back prior to d/c depending on his anxiety (2) Idioventricular rhythm Code(s): I44.2 - Atrioventricular block, complete Status: Acute Plan: Likely due to high vagal tone during sleep, very likely benign, observe on tele while here - Plan will be available as needed, pls call with questions or if nuc stress significantly abnl whenever it is able to be done
[2018-07-07] MEDS: LORazepam 0.5 MG Tablet PO PRN ×2 (10:47→18:13)
--- NOTE | 2018-07-07 14:21 | ECG ---
Date Performed: 07/07/2018 Time Performed: 08:52:42 PTAGE: 27 years EKG: Sinus bradycardia with periodic idioventricular rhythm Lead(s) unsuitable for analysis: V1 Left axis deviation Inferior and septal ST-T changes may be due to myocardial ischemia Abnormal ECG PREVIOUS TRACING : 07/06/2018 04.07 Compared to previous tracing, the idioventricular rhythm is new. DOCTOR: Jorge Yuen Interpretating Date/Time 07/07/2018 14:20:11
[2018-07-07] MEDS: Ibuprofen 400 MG Tablet PO PRN (22:43)
[2018-07-08] MEDS: Sod Chloride 0.9% Inj 1,000 ML IV.CONT SCH ×2 (00:56→03:45)
[2018-07-08] MEDS: LORazepam 0.5 MG Tablet PO PRN ×2 (00:56→08:53)
--- NOTE | 2018-07-08 09:57 | P.PN ---
Subjective Interval history: follow up for OD, elevated trop, bradycardia: pt. awake, oriented x 3. feels better today, was jittery yesterday and received Ativan. No cp, no sob, tele reviewed SB no pauses, no idioventricular rhythm. Dr. Yuen to see, plans for STT today. Physical Exam Vital signs: Vital Signs 07/07/18 12:00 07/07/18 16:00 07/07/18 19:57 Temperature 97.9 F Pulse Rate 45 L 52 L 55 L Respiratory Rate 18 Blood Pressure 140/94 H Pulse Oximetry 100 07/07/18 20:00 07/07/18 23:52 07/08/18 00:00 Temperature 98.4 F 98.1 F Pulse Rate 52 L 45 L 50 L Respiratory Rate 16 18 Blood Pressure 128/66 136/78 Pulse Oximetry 99 100 07/08/18 04:00 07/08/18 08:00 Temperature 97.8 F 98.0 F Pulse Rate 44 L 47 L Respiratory Rate 18 17 Blood Pressure 125/72 132/58 L Pulse Oximetry 99 100 Intake & Output 07/07/18 07/08/18 07/08/18 18:59 06:59 18:59 Intake Total 1000 / 1000 2240 / 2240 Balance 1000 / 1000 2240 / 2240 Weight 72.7 kg Intake: IV 1000 / 1000 1999 NS Inj 1,000 ML @ 125 mls/hr IV 1000 / 1000 1999 .CONT .Q8H [facility] Rx#:[id number] Oral 240 / 240 Other: # Voids 2 # Bowel Movements 0 Narrative: GENERAL: Well-nourished, well-developed patient in no apparent distress. SKIN: Warm and dry. HEAD: Atraumatic. Normocephalic. EYES: Pupils equal and round. No scleral icterus. No injection or drainage. ENT: No nasal bleeding or discharge. Mucous membranes pink and moist. NECK: Trachea midline. No JVD. CARDIOVASCULAR: S1-S2, bradycardia. Unable to detect any murmurs rubs or gallops. RESPIRATORY: No accessory muscle use. Clear to auscultation. Breath sounds equal bilaterally. GASTROINTESTINAL: Abdomen soft, non-tender, nondistended. Hepatic and splenic margins not palpable. MUSCULOSKELETAL: Extremities without clubbing, cyanosis, or edema. No obvious deformities. NEUROLOGICAL: Awakes to voice, alert oriented 3. No focal deficits. PSYCHIATRIC:cooperative Results - Labs CBC & Chem 7: 07/07/18 07:43 07/07/18 07:43 Laboratory Results - last 24 hr 07/07/18 07:43 Sodium 141 Potassium 3.8 Chloride 108 H Carbon Dioxide 26.8 Anion Gap 6 BUN 9 Creatinine 0.91 Estimated GFR Greater than 89 Random Glucose 88 Calcium 8.7 Assessment and Plan - Assessment (1) Elevated troponin Code(s): R74.8 - Abnormal levels of other serum enzymes Status: Acute (2) Bradycardia Code(s): R00.1 - Bradycardia, unspecified Status: Acute (3) DAREN (acute kidney injury) Code(s): N17.9 - Acute kidney failure, unspecified Status: Acute (4) Polysubstance abuse Code(s): F19.10 - Other psychoactive substance abuse, uncomplicated Status: Acute - Plan Assessment/plan: 27-year-old male with past medical history significant for IV drug abuse presents to the emergency department altered and with concern for substance overdose. Admits to taking IV cocaine/heroine approximately 30-40 minutes prior to the incident. Patient denies any chest pain or shortness of breath. No abdominal pain. No nausea/vomiting/diarrhea. No fever/chills. Reports he has been trying to get a bed at [facility] so that he can go into detox. Drug overdose Patient admits to doing IV cocaine and heroin Status post Narcan -Monitor for withdrawals Monitor vital signs closely Narcan as needed IVF -Ativan PRN anxiety, better today Elevated troponin, doubtful that this is due to the acute coronary syndrome, patient with recent IV cocaine and heroin. Patient also noted with acute kidney injury. EKG negative, no ST segment elevation, no depression. Bradycardia, noted with pauses 2.2 to 2.6 seconds. Possibly secondary to drug use. -Initial troponin 0.10, second troponin 0.38, 3rd trop 0.06 -Yesterday, noted with frequent episodes of idioventricular rhythm, bradycardia , heart rate down to 38. Telemetry improved today, no ectopy. Remain sinus bradycardia. -Stress test scheduled for today DAREN Cr 1.32 -IVF hydration -Monitor renal function -renal function improving Polysubstance abuse, history of frequent admissions to inpatient psych -patient reports he attempted to get a bed at [facility] yesterday and they are holding one for him -Case management following. -Patient counseled about substance abuse Possible discharge today after stress test Discussed with Dr. Radha RN and patient.
--- NOTE | 2018-07-08 10:13 | P.AMA ---
AMA Note - AMA Note AMA Statement: Patient Leo Estrada JR has decided to leave the hospital against medical advice. This patient has the capacity to refuse care and understands the risks of leaving, including permanent disability and/or , and has had an opportunity to ask questions about his/her condition. The patient has been informed that he/she may return for care at any time, and follow up has been arranged/advised. - AMA Note Discharge Disposition: Left Against Medical Advice Patient Condition on Discharge: Stable
--- NOTE | 2018-07-10 08:15 | P.DS ---
Date of admission: 07/06/18 01:42 Primary care physician: No Primary Care Physician Attending physician on discharge: Apolinar Mckay Brief History from admission: 27-year-old male with past medical history significant for IV drug abuse presents to the emergency department altered and with concern for substance overdose. The patient was given in the emergency department with significant improvement in his mental status. He reports remembering department department with EMS was called. He admits doing IV cocaine/heroine approximately 30-40 minutes prior to the incident. Patient denies any chest pain or shortness of breath. No abdominal pain. No nausea/vomiting/diarrhea. No fever/chills. Reports he has been trying to get a bed at [facility] so that he can go into detox. DS: Diagnosis - Discharge Diagnosis (1) Elevated troponin Status: Acute (2) Bradycardia Status: Acute (3) DAREN (acute kidney injury) Status: Acute (4) Polysubstance abuse Status: Acute DS: Summary Hospital Course: 27-year-old male with past medical history significant for IV drug abuse presents to the emergency department altered and with concern for substance overdose. Admits to taking IV cocaine/heroine approximately 30-40 minutes prior to the incident. Patient denies any chest pain or shortness of breath. No abdominal pain. No nausea/vomiting/diarrhea. No fever/chills. Reported he had been trying to get a bed at [facility] so that he can go into detox. Pt. put on telemetry, trop trended down. Cardiology evaluated, doubtful ACS however STT recommended when he was less anxious. Put on ASA. Pt. had no CP. Noted with idioventricular rhythm, bradycardia and pauses while asleep. D/W cardiology, likely vasovagal, pt. asymptomatic. IVF increased, monitored. Pt. did require ATivan PRN anxiety. Was noted in DAREN initially which resolved after IVF. Patient counseled about substance abuse. On day of STT, pt. decided to sign out AMA. He was counselled about consequences but decided to leave. Instructed to seek help at [facility] - Time Spent with Patient Total time spent providing and/or coordinating discharge services: Less than 30 minutes - Quality: VTE Deep Vein Thrombosis/Pulmonary Embolism Present on Admission: No Results Procedures completed during hospitalization: none - Impressions ITS Impressions Chest X-Ray 07/05/18 21:38 CONCLUSION: The lungs are clear. Head CT 07/05/18 21:38 CONCLUSION: 1. Negative noncontrast CT brain. . Cervical Spine CT 07/05/18 23:31 CONCLUSION: 1. Reversal of the normal lordotic curvature which may be positional. Mild degenerative disc disease at C4-5 and C5-6 with small uncovertebral spurs. 2. However, spinal canal and neural foramina are patent throughout without cord or nerve root compromise. No fracture or listhesis. Discharge Plan - Discharge Disposition Patient Disposition: Left Against Medical Advice - Discharge Condition Condition: Stable - Discharge Order Discharge Orders: AMA Discharge (Routine); Ordered 07/08/18 Ordered By: Mercedes Chambers - Physicians Team Primary Care Provider: Primary Care Shira Ybarra Attending Provider: Apolinar Mckay Other Providers: Ameya Marinelli MD
== END 2018-07-08 09:51 | disposition left against medical advice (07) ==
LOC: NEPC 21:22 → NEDA 07-06 01:42 → N04 07-06 05:00
PROVIDERS: ADMIT Hospitalist; ATTEND Hospitalist